=== PATIENT | female | born 1955 | race Caucasian/White ===

== ENCOUNTER → 2017-06-16 | Outpatient (CLI) | payer MEDICARE, OTHER ==
[~2017-06-16] MED LIST: ASPI325T8 PO; DICY20TA30 PO; EZET10TA18 PO; FENO160T13 PO; FEXO180T81 PO; FLUT10.6 IH; FLUV80TA PO; HYDR-965 PO; LANS30CA66 PO; LEXAPRO20 MG PO; METO25TA4 PO; MOME17SP NS; MONT10TA6 PO; PROAIR HFA8.5 GM IH; SPIR1TAB PO; TOPI200T25 PO
--- NOTE | 2017-06-16 13:12 | KCIC ---
MRI of the cervical spine without contrast 06/16/2017 CLINICAL HISTORY: Neck pain with tingling down both arms for last 2-3 years. TECHNIQUE: Unenhanced T1-weighted, T2-weighted and inversion recovery sagittal and gradient echo and T2-weighted axial images of the cervical spine were obtained. FINDINGS: Comparison study is dated 12/26/2014. Some of the images are degraded by patient motion. Mild lateral curvature of the cervical spine is seen convex to the right. There is straightening of the normal cervical lordosis. Degenerative signal changes are seen involving all of the disks of the cervical spine. Loss of height of the C5-6 disc is noted. Degenerative signal changes are seen within the marrow surrounding this disc. The cervical spinal cord is normal morphology, position, and signal characteristics. A 6 mm hemangioma is seen involving the T1 vertebral body, unchanged. At the C2-3, C3-4 and C4-5 disc spaces there are minimal to mild generalized disc bulges. Degenerative changes are seen involving the uncovertebral and facet joints bilaterally. These findings when combined do not result in significant central spinal canal or neural foraminal stenosis. At the C5-6 disc space there is a mild generalized disc bulge. Degenerative changes are seen involving the uncovertebral and facet joints bilaterally. Superimposed on this disc bulge is a focal central disc protrusion. This measures 3 mm in AP diameter these findings efface the anterior and posterior CSF without resulting in significant central spinal canal stenosis. Mild to moderate left greater than right neural foraminal stenosis is seen. At the C6-7 disc space there is a mild generalized disc bulge. Degenerative changes are seen involving the uncovertebral and facet joints bilaterally. These findings do not result in significant central spinal canal or neural foraminal stenosis. C7-T1 disc space there is a minimal generalized disc bulge. Degenerative changes are seen involving the facet joints bilaterally. These findings when combined do not result in significant central spinal canal or neural foraminal stenosis. Since the previous examination there has been no significant interval change. IMPRESSION: Degenerative changes are seen throughout the cervical spine. These findings do not result in significant central spinal canal stenosis at any level. Mild to moderate left greater than right neural foraminal stenosis is seen at C5-6. Electronically signed by: Wale Jiang MD (06/16/2017 1:08 PM) [facility]
== END | disposition home or self-care (01) ==
LOC: KCIC MRI 08:59
PROVIDERS: ATTEND Nurse Practitioner Family
DX: M50.30 Other cervical disc degeneration, unspecified cervical region (principal); M99.81 Other biomechanical lesions of cervical region
CPT/HCPCS: 72141

== ENCOUNTER → 2018-04-21 | Outpatient (CLI) | payer MEDICARE, OTHER | END | disposition home or self-care (01) | LOC: KCIC MRI 10:45 | DX: M25.78 Osteophyte, vertebrae (principal); I71.4 Abdominal aortic aneurysm, without rupture | CPT/HCPCS: 72148 ==